=== PATIENT | female | born 1950 | race Caucasian/White ===

== ENCOUNTER → 2016-08-23 | Outpatient (CLI) | payer BC, OTHER ==
[~2016-08-23] MED LIST: NORCO 5-325 TA1 EACH PO; TAMSULOSIN HCL0.4 MG PO; ZOFRAN4 MG PO
== END ==
LOC: RAD 12:33
DX: R07.9 Chest pain, unspecified (principal); R06.02 Shortness of breath

== ENCOUNTER → 2017-05-29 | Outpatient (CLI) | payer BC, OTHER | LOC: ULTRA 11:30 | DX: R10.11 Right upper quadrant pain (principal) ==